=== PATIENT | male | born 1995 ===

== ENCOUNTER 2018-04-08 21:36 | Emergency (ER) | payer SELFPAY ==
--- NOTE | 2018-04-08 23:03 | RADIOLOGY REPORT (SQ) ---
EXAM DESCRIPTION: XR FOREARM 2 VIEWS COMPLETED DATE/TME: 04/08/2018 22:40 CLINICAL HISTORY: 22 years, Male, laceration Findings: Bony alignment is anatomic. No fracture or dislocation. Soft tissues are unremarkable. IMPRESSION: No fracture.
[2018-04-09] MEDS ORDERED: LIDOCAINE 1% INJ-PF (10 MG/ML) 30 ML SDV INJ ONE ×2 (00:56→02:56)
[2018-04-09] MEDS ORDERED: DIPH/PERTUSS(ACELL)/TETANUS VAC/PF 0.5 ML SYR (>=10YO) IM ONE (00:56)
--- NOTE | 2018-04-09 00:56 | ER Document Report ---
ED Wound - General Mode of Arrival: Ambulatory Information source: Patient TRAVEL OUTSIDE OF THE [place] IN LAST 30 DAYS: No <DANIELLA REECE - Last Filed: 04/09/18 03:21> <TOYIN PERRY - Last Filed: 04/09/18 07:54> - General Chief Complaint: Laceration Stated Complaint: LACERATION AT WORK Time Seen by Provider: 04/09/18 00:39 Notes: 22-year-old Bulgarian-speaking male being translated by a friend at bedside that presents to the emergency department today with complaints of a laceration to his left forearm that occurred today at work. According to the friend, the patient was attempting to cut a shingle and the razorblade slipped striking him in the left forearm. Friend states that the patient has not been to a doctor in several years so his tetanus status is not up-to-date. Friend states that the injury occurred at around [id number] but they did not finish the job until 2000 this evening so there was a delay in arriving to the emergency department. (DANIELLA REECE) - Related Data Allergies/Adverse Reactions: No Known Allergies Allergy (Unverified 04/08/18 22:05) Past Medical History - General Information source: Patient - Social History Smoking Status: Never Smoker Cigarette use (# per day): No Chew tobacco use (# tins/day): No Frequency of alcohol use: None Drug Abuse: None Lives with: Family Family History: Reviewed & Not Pertinent Patient has suicidal ideation: No Patient has homicidal ideation: No Renal/ Medical History: Denies: Hx Peritoneal Dialysis <DANIELLA REECE - Last Filed: 04/09/18 03:21> Review of Systems - Review of Systems Constitutional: No symptoms reported EENT: No symptoms reported Cardiovascular: No symptoms reported Respiratory: No symptoms reported Gastrointestinal: No symptoms reported Genitourinary: No symptoms reported Male Genitourinary: No symptoms reported Musculoskeletal: No symptoms reported Skin: See HPI, Other - laceration to left forearm Hematologic/Lymphatic: No symptoms reported Neurological/Psychological: No symptoms reported -: Yes All other systems reviewed and negative <DANIELLA REECE - Last Filed: 04/09/18 03:21> Physical Exam <DANIELLA REECE - Last Filed: 04/09/18 03:21> - Vital signs Vitals: Temp Pulse Resp BP Pulse Ox 98.1 F 63 15 132/81 H 100 04/08/18 22:07 04/08/18 22:07 04/08/18 22:07 04/08/18 22:07 04/08/18 22:07 - Notes Notes: PHYSICAL EXAM GENERAL: Alert, interacts well. No acute distress. HEAD: Normocephalic, atraumatic. EYES: Pupils equal, round, and reactive to light. Extraocular movements intact. ENT: Oral mucosa moist, tongue midline. NECK: Full range of motion. Supple. Trachea midline. LUNGS: No respiratory distress. HEART: Regular rate and rhythm. EXTREMITIES: Moves all 4 extremities spontaneously. No edema, radial and dorsalis pedis pulses 2/4 bilaterally. No cyanosis. SKIN: Warm, dry, normal turgor. 4.5 cm gaping laceration to the ulnar aspect of the left forearm. (DANIELLA REECE) Course <TOYIN PERRY - Last Filed: 04/09/18 07:54> - Re-evaluation Re-evalutation: 04/09/18 02:56 Laceration repaired, patient states he does not have an ID so he will not be able to fill his antibiotics. I did discuss with patient that somebody should be able to product picker his antibiotics for him. Patient will be given a shot of Rocephin and given a prescription anyway. Patient will be discharged home. 04/09/18 02:59 Wound explored, no tendons or muscle involvement noted. Repaired without difficulty. Tetanus status updated. (TOYIN PERRY) - Vital Signs Vital signs: Temp Pulse Resp BP Pulse Ox 98.1 F 68 18 128/78 H 99 04/08/18 22:07 04/09/18 03:08 04/09/18 03:08 04/09/18 03:08 04/09/18 03:08 Procedures - Laceration/Wound Repair left forearm Wound length (cm): 4.5 Wound's Depth, Shape: Into muscle, Linear Laceration pre-procedure: Sterile PPE donned, Chloraprep applied, Sterile drapes applied, Shur-Clens applied Anesthetic type: 1% Lidocaine Volume Anesthetic (mLs): 5 Wound explored: Clean, No foreign body removed Wound Debrided: Minimal Wound Repaired With: Sutures Suture Size/Type: 4:0, Ethilon Number of Sutures: 9 Layer Closure?: No Post-procedure wound care: Sterile dressing applied Post-procedure NV exam normal: Yes Complications: No <TOYIN PERRY - Last Filed: 04/09/18 07:54> Discharge <DANIELLA REECE - Last Filed: 04/09/18 03:21> <TOYIN PERRY - Last Filed: 04/09/18 07:54> - Discharge Clinical Impression: Laceration of left forearm Qualifiers: Encounter type: initial encounter Qualified Code(s): S51.812A - Laceration without foreign body of left forearm, initial encounter Condition: Stable Disposition: HOME, SELF-CARE Additional Instructions: Laceration Care Your laceration has been sutured to keep the skin edges aligned during healing. The time of suture removal depends on the nature and location of your cut. Please follow the care instructions the doctor has outlined for you and return for further care, according to the schedule you've been given. Keep the wound and dressing clean. Unless you were told otherwise, you may shower daily, blotting the wound dry with a clean, unused towel. At other times, If the dressing gets wet or blood soaked, remove it and blot the wound dry, then reapply a new dressing. Unless you were instructed otherwise, dressings should be changed at least daily. If any signs of infection occur (swelling, redness, increasing tenderness, red streaks, tender lumps in the armpit or groin above the laceration, or fever), see the doctor immediately. Stitches should be removed in 7-10 days. Prescriptions: Cephalexin Monohydrate [Keflex 500 mg Capsule] 500 mg PO Q6H 7 Days capsule Referrals: [facility] [Provider Group] - Follow up as needed Scribe Attestation: 04/09/18 07:54 I personally performed the services described in the documentation, reviewed and edited the documentation which was dictated to the scribe in my presence, and it accurately records my words and actions. (TOYIN PERRY) Scribe Documentation - Scribe Written by Scribe:: Joanna Cain, 04/09/2018 [id number] acting as scribe for :: Yousif <DANIELLA REECE - Last Filed: 04/09/18 03:21>
[2018-04-09] MEDS ORDERED: CEFTRIAXONE INJ 1000 MG VIAL IM ONE (02:56)
[2018-04-09] MEDS ORDERED: HYDROCODONE/ACETAMINOPHEN 5-325 MG TABLET PO ONE (02:57)
[2018-04-09 03:08] VITALS: BP 128/78
== END 2018-04-09 03:10 | disposition home or self-care (01) ==
LOC: ER 21:36
PROC: 0HQEXZZ Repair Left Lower Arm Skin, External Approach (ICD-10-PCS; principal; 2018-04-08)
DX: S51.812A Laceration without foreign body of left forearm, initial encounter (principal); W01.0XXA Fall on same level from slipping, tripping and stumbling without subsequent striking against object, initial encounter
CPT/HCPCS: 99283; 90471; 73090; 90715; 12001; J3490